=== PATIENT | male | born 1950 | race Caucasian/White ===

== ENCOUNTER 2016-11-07 05:41 | Outpatient (CLI) | payer MEDICARE, OTHER ==
[~2016-11-07] VITALS: Ht 177.8 cm; Wt 86.2 kg
[~2016-11-07 05:41] MED LIST: ASPI-586 PO; CEPH500C PO; DOCU-143 PO; EZET1TAB43 PO; FINA5TAB6 PO; HYDR-3812 PO; HYDR118S10 PO; OMEP40CA36 PO; OXYC-197 PO; TMSL.4C PO
== END 2016-11-07 12:55 ==
LOC: PREOP 05:41
PROVIDERS: ATTEND Surgery
DX: Z01.818 Encounter for other preprocedural examination (principal); Z12.11 Encounter for screening for malignant neoplasm of colon

== ENCOUNTER 2016-11-12 06:59 | Day surgery (SDC) | payer MEDICARE, OTHER ==
[~2016-11-12] VITALS: Ht 177.8 cm; Wt 86.2 kg
[2016-11-12] MEDS ORDERED: NS IV 1000 ML 1,000 ML IV STA (07:07)
[2016-11-12 07:23] VITALS: BP 136/80
[2016-11-12] MEDS ORDERED: ceFAZolin 2 GM/50 ML NS 50 ML IV NR (08:25)
[2016-11-12] MEDS ORDERED: fentaNYL INJECTION 100 MCG/2 ML AMP ONE (08:33)
[2016-11-12] MEDS ORDERED: proPOfol 200 MG/20 ML (DIPRIVAN) VIAL IV ONE (08:33)
--- NOTE | 2016-11-12 08:50 | Progress Note-Pre Operative ---
Pre-Operative Progress Note H&P Reviewed The H&P was reviewed, patient examined and no changes noted. Time Seen by Provider: 08:50 Date H&P Reviewed: Nov 12, 2016 Time H&P Reviewed: 08:50 Pre-Operative Diagnosis: screening colonoscopy ODELL CORBETT DO Nov 12, 2016 8:50 am
[2016-11-12 09:40] VITALS: BP 112/74
--- NOTE | 2016-11-12 09:45 | Discharge Inst-Simple/Standard ---
Discharge Inst-Standard Patient Instructions/Follow Up Plan of Care/Instructions/FU: Hold Aspirin for 2 more days Follow up with Dr. Diego in 2 weeks Repeat colonoscopy in 5 years or sooner if changes to current condition. Activity as Tolerated: Yes Discharge Diet: No Restrictions BEST CHONG APRN Nov 12, 2016 09:45
--- NOTE | 2016-11-12 09:45 | Progress Note-Post Operative ---
Post-Operative Progess Note Surgeon (s)/Delivery Assistant (s) Surgeon ODELL CORBETT DO Delivery Assistant: na Pre-Operative Diagnosis screening colonoscopy Post-Operative Diagnosis transverse colon polyp Procedure & Operative Findings Date of Procedure 11/12/16 Procedure Performed/Findings colonoscopy c hot bx polypectomy Anesthesia Type per software recruiter Estimated Blood Loss Estimated blood loss (mL): none Specimens/Packing Specimens Removed transverse colon polyp ODELL CORBETT DO Nov 12, 2016 9:45 am
[2016-11-12 10:05] VITALS: BP 141/82
--- NOTE | 2016-11-12 11:20 | OPERATIVE REPORT ---
DATE OF SERVICE: 11/12/2016 PREOPERATIVE DIAGNOSIS: Screening colonoscopy. POSTOPERATIVE DIAGNOSIS: Colon polyp, transverse colon. PROCEDURE: Colonoscopy with hot biopsy polypectomy. SURGEON: Brandie ANESTHESIA: Per PIG MACHINE SUPERVISOR. ESTIMATED BLOOD LOSS: None. COMPLICATIONS: None. INDICATIONS: Patient is a 66-year-old male with need for screening colonoscopy. He understand risk and benefits of procedure. Consent was signed and on the chart. PROCEDURE: Patient seen in endoscopy suite, placed in left lateral recumbent position. A timeout was performed. Digital rectal exam was performed. There were no palpable polyps, masses or ulcerations. Scope was inserted in the rectum and advanced all the way to the cecum with minimal difficulty. Prep was adequate. Scope was then fully retracted back. There were no polyps, masses or ulceration within the cecum. The scope was then passed through the ileocecal valve and the terminal ileum appeared normal. Scope was slowly retracted back into the colon and then slowly retracted back. There were no polyps, masses or ulceration within the ascending colon. In the transverse colon, there was a small polyp for which a hot biopsy polypectomy was performed. Scope was continuously retracted back. There were no polyps, masses or ulcerations within the remainder of the transverse colon, descending colon, sigmoid colon. In the rectum, scope was also retroflexed, noting no other pathology. Scope was returned to its normal position and slowly withdrawn until completely removed. RECOMMENDATION: Patient will need repeat colonoscopy in 5 years. We will discuss the pathology in a couple weeks. If he has any problems prior to that, he should be reexamined at that time. Job ID: [id number] DocumentID: [id number] Dictated Date: 11/12/2016 10:16:16 Splitter Tender Date: 11/12/2016 11:19:35 Dictated By: ODELL CORBETT DO
[2016-11-12 12:30] VITALS: BP 141/82
== END 2016-11-12 10:10 | disposition home or self-care (01) ==
LOC: ENDO 06:59
PROVIDERS: ATTEND Surgery
DX: Z12.11 Encounter for screening for malignant neoplasm of colon (principal); D12.3 Benign neoplasm of transverse colon; E78.5 Hyperlipidemia, unspecified; Z79.899 Other long term (current) drug therapy
CPT/HCPCS: 88305

== ENCOUNTER → 2017-03-20 | Outpatient (CLI) | payer MEDICARE, OTHER ==
--- NOTE | 2017-03-20 21:59 | Diagnostic Imaging Report ---
Left renal ultrasound. INDICATION: Left renal mass. FINDINGS: The left kidney demonstrates simple cysts up to 7.3 CM and 4.4 CM both in the lower pole of the left kidney. There is no hydronephrosis or solid mass identified in the left kidney. IMPRESSION: Simple cyst in the lower pole of the left kidney up to 7.3 CM in size. Dictated by: Dictated on workstation # [id number]
== END ==
LOC: RAD 10:47
PROVIDERS: ATTEND Family Medicine
DX: N28.1 Cyst of kidney, acquired (principal)
CPT/HCPCS: 76775

== ENCOUNTER 2018-12-24 10:14 | Emergency (ER) | payer MEDICARE, OTHER | END 2018-12-24 12:48 | disposition home or self-care (01) | LOC: ER 10:14 ==

== ENCOUNTER → 2020-08-25 | Outpatient (CLI) | payer MEDICARE, OTHER ==
[~2020-08-25] MED LIST changes: +ACHD5005 PO; -HYDR-3812 PO; -OXYC-197 PO; +OXYC1TAB87 PO
--- NOTE | 2020-08-25 12:25 | Diagnostic Imaging Report ---
PROCEDURE: CT abdomen and pelvis without contrast. TECHNIQUE: Multiple contiguous axial images were obtained through the abdomen and pelvis without the use of intravenous contrast. Auto Exposure Controls were utilized during the CT exam to meet ALARA standards for radiation dose reduction. INDICATION: Lower abdominal pain. Correlation is made with prior CT from 07/19/2015. A small nodule in the posterolateral left lower lobe appears stable. Hepatic low-attenuation lesions are stable and likely cysts. Gallbladder is surgically absent. There is no biliary ductal dilatation. The pancreas and spleen are unremarkable. No adrenal mass is detected. There is a cyst in the upper pole of the right kidney measuring 4.3 cm compared with 3.6 cm on prior exam. Large cysts in the lower pole of the left kidney are noted. Largest cyst on the left now measures 7.5 cm compared with 6.3 cm. No definite renal calculi or hydronephrosis is identified. Aorta is nonaneurysmal. Small and large bowel loops are normal caliber. There is no obstruction. The bladder and prostate are unremarkable. There is no free fluid or fluid collection identified. The bony structures appear nonacute. IMPRESSION: 1. Hepatic and renal cysts. Renal cysts have demonstrated some increase in size since exam from 2016. No calculi or hydronephrosis is identified. 2. No acute feature in the abdomen or pelvis is identified. Dictated by: Dictated on workstation # [id number]
== END ==
LOC: RAD 09:48
DX: K76.89 Other specified diseases of liver (principal); N28.1 Cyst of kidney, acquired
CPT/HCPCS: 74176

== ENCOUNTER 2020-09-29 05:37 | Outpatient (RCR) | payer MEDICARE ==
[~2020-09-29] VITALS: Ht 177.8 cm; Wt 85.5 kg
[~2020-09-29 05:37] MED LIST changes: +ASPI-999 PO; +MULT-974 PO; +OMG1KC PO; +VITA1TAB33 PO
== END 2020-09-29 11:00 | disposition home or self-care (01) ==
LOC: PREOP 05:37
PROVIDERS: ATTEND Surgery
DX: Z01.812 Encounter for preprocedural laboratory examination (principal); Z20.822 Contact with and (suspected) exposure to COVID-19; Z86.010 Personal history of colon polyps
CPT/HCPCS: 87635

== ENCOUNTER 2020-10-03 08:01 | Day surgery (SDC) | payer MEDICARE ==
[~2020-10-03] VITALS: Ht 177 cm; Wt 85.0 kg
[2020-10-03] MEDS ORDERED: LACTATED RINGERS 1,000 ML IV STA (08:10)
[2020-10-03] MEDS ORDERED: LACTATED RINGERS 1,000 ML IV ONE (08:13)
[2020-10-03] MEDS ORDERED: HURRICAINE EXT TUBE (BENZOCAINE) XX PRN (08:15)
[2020-10-03 08:27] VITALS: BP 134/88
--- NOTE | 2020-10-03 09:21 | Progress Note-Pre Operative ---
Pre-Operative Progress Note H&P Reviewed The H&P was reviewed, patient examined and no changes noted. Date Seen by Provider: Oct 03, 2020 Time Seen by Provider: :21 Date H&P Reviewed: Oct 03, 2020 Time H&P Reviewed: 09:21 Pre-Operative Diagnosis: abdominal pain, hx polyps ODELL CORBETT DO Oct 03, 2020 09:21
[2020-10-03] MEDS ORDERED: PROPOFOL INJECTION 50 ML IV ONE (10:07)
[2020-10-03] MEDS ORDERED: HURRICAINE EXT TUBE (BENZOCAINE) ONE (10:17)
[2020-10-03 11:30] VITALS: BP 129/69
--- NOTE | 2020-10-03 11:31 | Discharge Inst-Simple/Standard ---
Discharge Inst-Standard Patient Instructions/Follow Up Plan of Care/Instructions/FU: 2 weeks Brandie Activity as Tolerated: Yes Discharge Diet: Regular Diet ODELL CORBETT DO Oct 03, 2020 11:31
--- NOTE | 2020-10-03 11:31 | Progress Note-Post Operative ---
Post-Operative Progess Note Surgeon (s)/Motor Driver (s) Surgeon ODELL CORBETT DO Motor Driver: na Pre-Operative Diagnosis abdominal pain, hx polyps Post-Operative Diagnosis hiatal hernia, cecal polyp Procedure & Operative Findings Date of Procedure 10/03/20 Procedure Performed/Findings egd c biopsy, colonoscopy c hot bx polypectomy x 1 Anesthesia Type per asphalt tar and gravel roofer Estimated Blood Loss Estimated blood loss (mL): none Specimens/Packing Specimens Removed antrum, cecal polyp ODELL CORBETT DO Oct 03, 2020 11:31
[2020-10-03 11:35] VITALS: BP 129/76
[2020-10-03 11:40] VITALS: BP 144/71
[2020-10-03 12:08] VITALS: BP 144/71
--- NOTE | 2020-10-03 13:06 | Anesthesia-General Post-Op ---
MAC Patient Condition Mental Status/LOC: Same as Preop Cardiovascular: Satisfactory Nausea/Vomiting: Absent Respiratory: Satisfactory Pain: Controlled Complications: Absent Post Op Complications Complications None Follow Up Care/Instructions Patient Instructions None needed. Anesthesiology Discharge Order Discharge Order Patient is doing well, no complaints, stable vital signs, no apparent adverse anesthesia problems. No complications reported per nursing. KIM CAMPOVERDE CRNA Oct 03, 2020 13:06
--- NOTE | 2020-10-03 16:53 | OPERATIVE REPORT ---
DATE OF SERVICE: 10/03/2020 PREOPERATIVE DIAGNOSES: Abdominal pain, history of polyps. POSTOPERATIVE DIAGNOSIS: Hiatal hernia, and cecal polyp. PROCEDURE: EGD with biopsy, colonoscopy with hot biopsy polypectomy. SURGEON: Odell Diego DO ANESTHESIA: Per LEAD JAVA SOFTWARE ENGINEER. ESTIMATED BLOOD LOSS: None. COMPLICATIONS: None. INDICATIONS: The patient is a 70-year-old male with some abdominal pain and has history of polyps. He understands risks and benefits of procedure and wished to proceed with procedure. Consent was signed in the chart. DESCRIPTION OF PROCEDURE: The patient was taken to the endoscopy suite, placed in left lateral recumbent position. Timeout was performed. Scope was inserted in mouth, down the esophagus, stomach and into the duodenum without difficulty. There were no polyps, masses or ulcerations within the duodenum. Scope was slowly retracted back into the stomach where it was further insufflated. No polyps, masses or ulcerations. Biopsy of the antrum was obtained. There was some very minimal erythematous changes. Scope was retroflexed noting a hiatal hernia, no other pathology. Scope was returned to its normal position, slowly withdrawn to distal esophagus, which had normal appearance. No polyps, masses or ulcerations. Scope was then slowly retracted back until completely removed. The patient had digital rectal exam was performed. No palpable polyps, masses or ulcerations. Scope was inserted in the rectum and advanced all the way to cecum with minimal difficulty. Prep was adequate. In the cecum, a small polyp was present, which hot biopsy polypectomy was performed. Scope was then continuously slowly retracted back. No polyps, masses or ulcerations within the remainder of the cecum, ascending, transverse, descending and sigmoid colon. Once in the rectum, scope was retroflexed noting no other pathology. Scope was returned to its normal position, slowly withdrawn until completely removed. The patient tolerated procedure well without any complications. He was taken to recovery room in stable condition. RECOMMENDATIONS: The patient will need repeat colonoscopy in 5 years. Any issues before that be seen at that time. The patient will follow up in office in two weeks to discuss pathology results. Job ID: [id number] DocumentID: [id number] Dictated Date: 10/03/2020 11:36:59 Hogshead Press Operator Date: 10/03/2020 16:53:12 Dictated By: ODELL DIEGO DO
== END 2020-10-03 12:08 | disposition home or self-care (01) ==
LOC: ENDO 08:01
PROVIDERS: ATTEND Surgery
DX: D12.0 Benign neoplasm of cecum (principal); K29.50 Unspecified chronic gastritis without bleeding; K44.9 Diaphragmatic hernia without obstruction or gangrene; K21.9 Gastro-esophageal reflux disease without esophagitis; M06.9 Rheumatoid arthritis, unspecified; Z79.899 Other long term (current) drug therapy; Z79.02 Long term (current) use of antithrombotics/antiplatelets; Z90.49 Acquired absence of other specified parts of digestive tract
CPT/HCPCS: 88305

== ENCOUNTER → 2022-01-17 | Outpatient (CLI) | payer MEDICARE ==
[2022-01-17 11:22] LABS: CALCIUM 9.2 MG/DL (8.5-10.1); CREATININE SERUM 1.21 MG/DL (0.60-1.30)
[2022-01-17] MEDS: IOHEXOL 350 MG/ML 100 ML (OMNIPAQUE 350) VIAL IV ONE (11:51)
[2022-01-17] MEDS: NS 100 ML (IVPB) BAG IV ONE (11:52)
[2022-01-17] MEDS: CATHETER FLUSH 10 ML SYR IV PRN (11:52)
--- NOTE | 2022-01-17 12:20 | Diagnostic Imaging Report ---
PROCEDURE: CT abdomen and pelvis with and without contrast. TECHNIQUE: Precontrast acquisitions were acquired through the abdomen and pelvis. Multiple contiguous axial images were obtained through the abdomen and pelvis after the administration of intravenous contrast. Auto Exposure Controls were utilized during the CT exam to meet ALARA standards for radiation dose reduction. INDICATION: Abdominal pain. FINDINGS: The lung bases are clear. There are scattered hepatic cysts. There is no biliary ductal dilatation. Gallbladder is surgically absent. Spleen is normal. Pancreas and adrenal glands are unremarkable. There are bilateral renal cysts. Aorta is nonaneurysmal. The bowel gas pattern is nonspecific. There is no free air. There is no ascites. There are no focal inflammatory changes. The bladder is normal. There is no pelvic mass, adenopathy, or free fluid. IMPRESSION: Benign hepatic and renal cysts without evidence of nephrolithiasis or obstructive uropathy. Otherwise, unremarkable CT abdomen and pelvis. Dictated by: Dictated on workstation # [id number]
== END ==
LOC: RAD 10:45
PROVIDERS: ATTEND Nurse Practitioner Family
DX: K76.89 Other specified diseases of liver (principal); N28.1 Cyst of kidney, acquired
CPT/HCPCS: 36415; 74178; 80048